=== PATIENT | female | born 1980 | race Caucasian/White ===

== ENCOUNTER 2016-10-15 07:20 | Emergency (ER) | payer BC ==
[2016-10-15 07:30] VITALS: BP 99/64
--- NOTE | 2016-10-15 07:36 | UC ---
Ear Complaint HPI - HPI Summary HPI Summary: The patient comes in today for: 1. Bilateral ears feeling "plugged." Onset: Yesterday. Palliative/provocative: Driving makes it worse. Quality: Pressure, plugged. Region: Left ear is worse than the right. Severity: 0/10--more pressure and feeling like under water. Time: Constant. Associated symptoms: Previous disease: "Ear infection" on the left in July. Discharge: None. * - History of Current Complaint Chief Complaint: UCEar Stated Complaint: EAR COMPLAINT Time Seen by Provider: 10/15/16 07:31 Hx Obtained From: Patient Hx Last Menstrual Period: 10/06/16 ?: No - Allergies/Home Medications Allergies/Adverse Reactions: Allergies Allergy/AdvReac Type Severity Reaction Status Date / Time Sulfa Drugs Allergy Severe Hives Verified 08/09/16 07:34 Home Medications: Home Medications Norethindr/Eth Estradiol(Nf) [Lo Loestrin Fe (NF)] 1 tab PO BEDTIME 10/15/16 [ History Confirmed 10/15/16] PMH/Surg Hx/FS Hx/Imm Hx Previously Healthy: No - Family planning: on BCP, getting gallbladder out next week. Endocrine History Of: Denies: Diabetes, Thyroid Disease, Hyperthyroidism, Hypothyroidism, Dyslipidemia Cardiovascular History Of: Denies: Cardiac Disorders, Hypertension, Pacemaker/ICD, Myocardial Infarction , Congestive Heart Failure, Atrial Fibrillation, Deep Vein Thrombosis, Bleeding Disorders Respiratory History Of: Reports: Asthma - No inhalers used regularly--only prn. Denies: COPD, Bronchitis, Pneumonia, Pulmonary Embolism GI/ History Of: Denies: Gastroesophageal Reflux, Ulcer, Gastrointestinal Bleed, Gall Bladder Disease, Kidney Stones, Diverticulitis, Renal Disease, Urosepsis Neurological History Of: Denies: TIA, CVA, Dementia, Seizures, Migraine Psychological History Of: Denies: Anxiety, Depression, Bipolar Disorder, Schizophrenia, Post Traumatic Stress Disorder Cancer History Of: Denies: Lung Cancer, Colorectal Cancer, Breast Cancer, Prostate Cancer, Cervical Cancer Other History Of: Negative For: HIV, Hepatitis B, Hepatitis C, Anticoagulant Therapy - Surgical History Surgical History: Yes Surgery Procedure, Year, and Place: - Family History Known Family History: Positive: Cardiac Disease, Hypertension - Social History Alcohol Use: Rare Substance Use Type: None Smoking Status (MU): Never Smoked Tobacco Review of Systems Constitutional: Negative Skin: Negative Eyes: Negative ENT: Negative Respiratory: Cough - Dry, "little" cough. Cardiovascular: Negative Gastrointestinal: Negative All Other Systems Reviewed And Are Negative: Yes Physical Exam Triage Information Reviewed: Yes Appearance: Well-Appearing, No Pain Distress, Well-Nourished Vital Signs: Initial Vital Signs Temp 98.3 F 10/15/16 07:23 Pulse 74 10/15/16 07:23 Resp 16 10/15/16 07:23 BP 99/64 10/15/16 07:23 Pulse Ox 100 10/15/16 07:23 Vital Signs Reviewed: Yes Eyes: Positive: Conjunctiva Clear. Negative: Discharge ENT: Positive: Hearing grossly normal, Other: - Ears: Left: Cerumen blocks view of TM. AFter irrigation, TM bennett and transludent; canal free of erythema or edema. Right: TM bennett and translucent, no canal erythema or edema.. Negative: Pharyngeal erythema, Nasal congestion, Nasal drainage, Tonsillar swelling, Tonsillar exudate Dental: Negative: Gross Decay/Caries @, Dental Fracture @ Neck: Positive: Supple, Nontender, No Lymphadenopathy. Negative: Nuchal Rigidity Respiratory: Positive: Lungs clear, No respiratory distress, No accessory muscle use. Negative: Crackles, Wheezing Cardiovascular: Positive: RRR, No Murmur Abdomen Description: Positive: Nontender, No Organomegaly, Soft. Negative: Distended, Guarding Musculoskeletal: Positive: Strength Intact, ROM Intact Neurological: Positive: Alert, Muscle Tone Normal Psychological: Positive: Age Appropriate Behavior, Consolable Skin: Negative: rashes, breakdown Ear Complaint Course/Dx - Differential Dx/Diagnosis Differential Diagnosis/HQI/PQRI: Cellulitis, Cerumen Impaction, Otitis Externa Provider Diagnoses: Eustachian tube dysfunction, bilateral. Discharge - Discharge Plan Condition: Stable Disposition: HOME Patient Education Materials: Eustachian Tube Dysfunction (GEN) Referrals: Maykel Pereira, [Primary Care Provider] - If Needed (If you improve, you don't need any follow up. However, if you don't improve or particularly if you get worse, please be seen again by your primary care provider or one of the ENT specialists. ) Tony Hassan MD [Medical Doctor] -
== END 2016-10-15 08:04 | disposition home or self-care (01) ==
LOC: UCCORT 07:20
DX: H69.93 Unspecified Eustachian tube disorder, bilateral (principal); Z88.2 Allergy status to sulfonamides
CPT/HCPCS: 99212; G0463

== ENCOUNTER 2016-12-13 19:31 | Emergency (ER) | payer BC ==
[2016-12-13 21:26] VITALS: BP 114/68
--- NOTE | 2016-12-13 22:01 | UC ---
Ear Complaint HPI - HPI Summary HPI Summary: The patient comes in today for: 1. Plugged ears, and head pressure: Onset: 2 days ago. Palliative/provocative: Bending over makes it worse. Quality: Plugged sensation of the left ear. Region: Bilateral ears, left is worse than the right. Severity: 4/10 Time: Constant. Associated symptoms: FEvers; None. Discharge: None Previous ear disease: Rupture of the left ear 2-3 years ago. Hearing: decreased. * - History of Current Complaint Chief Complaint: UCEar Stated Complaint: EAR/SINUS COMPLAINT Time Seen by Provider: 12/13/16 21:55 Hx Obtained From: Patient Hx Last Menstrual Period: 12/01/16 ?: No - Allergies/Home Medications Allergies/Adverse Reactions: Allergies Allergy/AdvReac Type Severity Reaction Status Date / Time Sulfa Drugs Allergy Severe Hives Verified 12/13/16 21:20 Home Medications: Home Medications Pseudoephedrine HCl [Sudafed Congestion] 2 tab PO Q4HR PRN 12/13/16 [History Confirmed 12/13/16] PMH/Surg Hx/FS Hx/Imm Hx Previously Healthy: No - Family planning/BCP Endocrine History Of: Denies: Diabetes, Thyroid Disease, Hyperthyroidism, Hypothyroidism, Dyslipidemia Cardiovascular History Of: Denies: Cardiac Disorders, Hypertension, Pacemaker/ICD, Myocardial Infarction , Congestive Heart Failure, Atrial Fibrillation, Deep Vein Thrombosis, Bleeding Disorders Respiratory History Of: Reports: Asthma - No inhalers used regularly--only prn. Denies: COPD, Bronchitis, Pneumonia, Pulmonary Embolism GI/ History Of: Denies: Gastroesophageal Reflux, Ulcer, Gastrointestinal Bleed, Gall Bladder Disease, Kidney Stones, Diverticulitis, Renal Disease, Urosepsis Neurological History Of: Denies: TIA, CVA, Dementia, Seizures, Migraine Psychological History Of: Denies: Anxiety, Depression, Bipolar Disorder, Schizophrenia, Post Traumatic Stress Disorder Cancer History Of: Denies: Lung Cancer, Colorectal Cancer, Breast Cancer, Prostate Cancer, Cervical Cancer Other History Of: Negative For: HIV, Hepatitis B, Hepatitis C, Anticoagulant Therapy - Surgical History Surgical History: Yes Surgery Procedure, Year, and Place: ; Lap Choleycesctomy - Family History Known Family History: Positive: Cardiac Disease, Hypertension, Diabetes - Social History Occupation: Employed Full-time Alcohol Use: Rare Substance Use Type: None Smoking Status (MU): Never Smoked Tobacco - Immunization History Most Recent Influenza Vaccination: not utd Review of Systems Constitutional: Negative Skin: Negative Eyes: Negative ENT: Negative, Other - Head congestion. Respiratory: Cough Cardiovascular: Negative Gastrointestinal: Negative Genitourinary: Negative All Other Systems Reviewed And Are Negative: Yes Physical Exam Triage Information Reviewed: Yes Appearance: Well-Appearing, No Pain Distress, Well-Nourished Vital Signs: Initial Vital Signs Temp 98.0 F 12/13/16 21:21 Pulse 52 12/13/16 21:21 Resp 14 12/13/16 21:21 BP 114/68 12/13/16 21:21 Pulse Ox 99 12/13/16 21:21 Vital Signs Reviewed: Yes Eyes: Positive: Conjunctiva Clear. Negative: Discharge ENT: Positive: Hearing grossly normal. Negative: Pharyngeal erythema, Nasal congestion, Nasal drainage, TM bulging, TM dull, TM red, Tonsillar swelling, Tonsillar exudate Dental: Negative: Gross Decay/Caries @, Dental Fracture @ Neck: Positive: Supple, Nontender, No Lymphadenopathy. Negative: Nuchal Rigidity Respiratory: Positive: Chest non-tender, Lungs clear, No respiratory distress, No accessory muscle use. Negative: Crackles, Wheezing Cardiovascular: Positive: RRR, No Murmur Abdomen Description: Positive: Nontender, No Organomegaly, Soft. Negative: Distended, Guarding Musculoskeletal: Positive: Strength Intact, ROM Intact Neurological: Positive: Alert, Muscle Tone Normal. Negative: Lethargic, Unresponsive Psychological: Positive: Age Appropriate Behavior, Consolable Skin: Negative: rashes, breakdown Ear Complaint Course/Dx - Course Course Of Treatment: Patient was told of the benign findings. He was encouraged to insulflate her ears. - Differential Dx/Diagnosis Provider Diagnoses: Eustachian tube dysfunction. Discharge - Discharge Plan Condition: Stable Disposition: HOME Patient Education Materials: Eustachian Tube Dysfunction (GEN) Referrals: Maykel Pereira DO [Primary Care Provider] - 1 Week (Please see your primary care provider in about a week to see how well you are doing. If you get worse, please be seen sooner.)
== END 2016-12-13 22:16 | disposition home or self-care (01) ==
LOC: UCCORT 19:31
DX: H69.93 Unspecified Eustachian tube disorder, bilateral (principal); Z88.2 Allergy status to sulfonamides; Z90.49 Acquired absence of other specified parts of digestive tract
CPT/HCPCS: 99211; G0463

== ENCOUNTER 2019-01-23 07:36 | Emergency (ER) | payer BC ==
--- OUTSIDE RECORDS SUMMARY | 2019-01-23 07:46 | XMS REPORT | Continuity of Care Document ---
:1980 External Reference #:[id number] Author Name Ramila Hemphill MD Address [address] [place] [id number] Care Team Providers Name Role Phone Ramila Hemphill MD Care Team Information Card Player Unavailable Payers Date Identification Numbers Payment Provider Subscriber Effective: 2018 Policy Number: [id number] [facility] Commercial Asa leary PayID: [id number] [address] [address] [place] [phone] Effective: 2011 Policy Number: [id number] [facility] [employer] Asa Butcher Expires: 2018 PayID: [id number] [address] [address] [place] [phone] Advance Directives Description No Information Available Problems Date Description Provider Status Onset: 08/30/2018 Mild intermittent asthma Ramila Hemphill MD Active Family History Date Family Member(s) Observation Comments Onset: (age 48 Years) Father CAD Father Hypertension Father Diabetes, Adult Mother Arrythmia SVT, had procedure First Daughter No Current Problems First Sister No Current Problems Social History Type Date Description Comments Sex Unknown Marital Status 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 Tyrone Mata ETOH Use Denies alcohol use Tobacco Use Start: Unknown Patient has never smoked Recreational Drug Use Denies Drug Use Smoking Status Reviewed: 12/25/18 Patient has never smoked Allergies, Adverse Reactions, Alerts Date Description Reaction Status Severity Comments 07/28/2016 Sulfa Drugs HIVES Active Medications Medication Date Status Form Strength Qnty SIG Indications Ordering Provider Low-Ogestrel Active Tablets 0.3-30mg-mc 168tabs tk 1 t by Kanchan 000 g mouth Ramila MD every day Amoxicillin/Cl Hx Tablets 875-125mg 20tabs 1 by J01.90 Kanchan avulanate 018 - mouth Ramila MD Potassium twice a 018 day No Active Hx Unknown Medications 016 - 016 Amoxicillin Hx Tablets 875mg 20tabs 1 by H66.92 Digiovanna 016 - mouth , twice a Janet, 016 day for BUTTON SEWER HAND 10 days Advair Diskus Hx Aerosol 100-50mcg/D 60units inhale 1 Unknown 000 - ose dose by mouth 016 twice a day Proair HFA Hx Aerosol 108(90Base) 1units 2 puffs Unknown 000 - mcg/Act po prn 016 Immunizations CPT Code Status Date Vaccine Reaction Lot # [id number] Given 12/25/2018 Pneumococcal 23 Immunization [id number] Adult Or Immunosuppressed Patient Q2039 Given 07/31/2018 Flu Vaccine NOS GIVEN AT PHARMACY 45631 Given 08/06/2014 Tdap (Adacel) Ages 7 And Above GIVEN AT OB Only Vital Signs Date Vital Result Comment 12/25/2018 9:44am Weight 189.00 lb Heart Rate 64 /min BP Systolic 130 mmHg BP Diastolic 80 mmHg Respiratory Rate 16 /min Height 65.75 inches 5'5.75" O2 % BldC Oximetry 100 % ra BMI (Body Mass Index) 30.7 kg/m2 08/30/2018 3:20pm Body Temperature 98.5 F Weight 183.00 lb Heart Rate 64 /min BP Systolic 124 mmHg BP Diastolic 80 mmHg Respiratory Rate 18 /min Height 65.25 inches 5'5.25" 07/28/16 O2 % BldC Oximetry 98 % Ra BMI (Body Mass Index) 30.2 kg/m2 10/07/2016 1:14pm Body Temperature 99.0 F Weight 160.00 lb Heart Rate 72 /min BP Systolic 114 mmHg BP Diastolic 70 mmHg Respiratory Rate 18 /min Height 65.25 inches 5'5.25" 07/28/16 BMI (Body Mass Index) 26.4 kg/m2 07/28/2016 1:04pm Body Temperature 98.7 F Weight 174.00 lb Heart Rate 72 /min BP Systolic 120 mmHg BP Diastolic 74 mmHg Respiratory Rate 17 /min Height 65.25 inches 5'5.25" 07/28/16 BMI (Body Mass Index) 28.7 kg/m2 10/10/2013 2:58pm Body Temperature 97.6 F Weight 183.00 lb Heart Rate 66 /min BP Systolic 110 mmHg BP Diastolic 70 mmHg Respiratory Rate 18 /min 02/02/2011 1:24pm Body Temperature 98.6 F Weight 160.00 lb Heart Rate 80 /min BP Systolic 130 mmHg BP Diastolic 70 mmHg Height 65 inches 5'5" 05/29/2010 10:24am Weight 149.00 lb Heart Rate 78 /min BP Systolic 102 mmHg BP Diastolic 68 mmHg Respiratory Rate 18 /min 09/22/2009 10:21am Weight 146.31 lb Heart Rate 72 /min BP Systolic 120 mmHg RIGHT BP Diastolic 72 mmHg RIGHT Respiratory Rate 16 /min 08/18/2009 10:32am Weight 145.38 lb Heart Rate 76 /min BP Systolic 110 mmHg LEFT BP Diastolic 54 mmHg LEFT Respiratory Rate 15 /min Height 65.25 inches 5'5.25" Results Test Date Facility Test Result H/L Range Note Laboratory test 12/25/2018 [facility] Pap Smear Thin <pending> finding Prep-RL HPV Dna Test -RL <pending> Laboratory test finding 12/25/2018 [facility] TSH <pending> Hepatic Panel (LFT) 10/07/2016 [facility] Total Protein 7.3 g/dL 6.0-8.0 Albumin 4.3 g/dL 3.6-4.9 Total Bilirubin 0.4 mg/dL 0.1-1.3 Direct Bilirubin 0.1 mg/dL 0.0-0.4 Alkaline Phosphatase 38 U/L 24-140 Alt 15 U/L 3-42 Ast 12 U/L 8-42 Laboratory test finding 10/07/2016 [facility] Amylase 37 U/L 29-103 Lipase 16 U/L 11-82 Celiac Disease 10/07/2016 [facility] Celikey (tTG) IgA Negative Negative Profile-[facility] [place] Celikey (tTG) IgG Negative Negative deamidated Gliadin IgA Negative Negative deamidated Gliadin IgG Negative Negative Laboratory test 01/07/2014 N[facility] Import HCG Serum, Positive High finding Qualitative Laboratory test 02/02/2011 [facility] Import Culture Throat See Note 1 finding Laboratory test 09/22/2009 N2N/[facility] Import Esr (Sed 3 SEC 0-25 2 finding Rate/Westergren) Laboratory test 08/25/2009 N2N/CCD Import A/G Ratio 1.1 1.0-2.2 finding Absolute Basophils 0.085 K/ul 0.0-0.3 Absolute Eosinophils 0.124 K/ul 0.0-0.5 Absolute Lymphocytes 3.38 K/ul 0.8-4.8 Absolute Monocytes 0.468 K/ul 0.1-1.0 Absolute Neutrophils 2.60 K/ul 2.05-7.63 Albumin 3.7 g/dL 3.5-5.0 Alkaline Phosphatase 49 U/L 30-126 Alt 20 U/L 9-52 Ast 18 U/L 14-36 BUN 10 mg/dL 7-18 BUN/CR Ratio 11.5 Ratio Low 12-20 Basophil 1.3 % 0-2 Calcium 9.6 mg/dL 8.7-10.5 Carbon Dioxide 25 mmol/L 22-30 Chloride 108 mmol/L High 98-107 Creatinine, Serum 0.9 mg/dL 0.7-1.2 Eosinophil 1.9 % 0-4 Globulin 3.3 g/dL 2.7-4.3 Glucose 76 mg/dL 65-105 Hematocrit 41.4 % 37.0-51.0 Hemoglobin 13.7 GM/dl 12.0-16.0 Lymphocytes 50.8 % High 20-44 MCH 29.2 pg 26.0-32.0 MCHC 33.1 g/dL 31.0-36.0 MCV 88 FL 80-97 Monocytes 7.0 % 2-10.0 Neutrophils 39.1 % Low 50-70 Platelet Count 235 K/ul 140-440 Potassium 4.1 mmol/L 3.6-5.0 RBC 4.69 M/ul 4.2-6.3 RDW 12.6 % 11.5-14.5 Sodium 142 mmol/L 137-145 TSH 1.561 uIU/ml 0.50-6.00 Total Bilirubin 0.4 mg/dL 0.2-1.3 Total Protein 7.0 g/dL 6.3-8.2 WBC 6.7 K/ul 4.1-10.9 Lipid Panel 08/25/2009 N2N/[facility] Import Chol/HDL Ratio 3.5 Cholesterol 175 mg/dL 50-199 HDL Cholesterol 49 mg/dL 29-86 LDL 107 mg/dL 20-129 3 Triglycerides 93 mg/dL 30-249 VLDL Cholesterol 19 mg/dL 1 Organism 1 ! BETA STREPTOCOCCUS GROUP A QUANTITY ! MANY RECOMMENDED THERAPY : ! PENICILLIN OR AMPICILLIN. ALTERNATIVE THERAPY: ! ERYTHROMYCIN MAY BE USED IN PENICILLIN ALLERGIC ! INDIVIDUALS 2 FASTING 3 Normal Range: Male: <4.98 Female: <4.45 Procedures Date Code Description Status 08/30/2018 89657 Measure Blood Oxygen Level Single Determination Completed 10/12/2016 74821 Echography Abdominal Limited Completed 09/23/2009 02322 Visual Screening Test Completed 09/23/2009 31901 Screening Hearing Test Completed 09/22/2009 19673 Visual Screening Test Completed 09/22/2009 86318 Screening Hearing Test Completed Encounters Type Date Location Provider Dx Diagnosis Office Visit 08/30/2018 [facility] Ramila Hemphill, J01.90 Acute sinusitis, 3:15p unspecified J45.20 Mild intermittent asthma, uncomplicated Z68.30 Body mass index (BMI) 30.0-30.9, adult Office Visit 10/07/2016 1:15p [facility] Maykel Pereira DO R10.10 Upper abdominal pain, unspecified Office Visit 07/28/2016 1:00p [facility] Janet Skelton H66.92 Otitis media, BUTTON SEWER HAND unspecified, LEFT ear Plan of Treatment Future Appointment(s):12/31/2019 11:00 am - Ramila Hemphill MD at [facility]2018 - Ramila Hemphill MDZ01.411 Encounter for gynecological examination ( general) (routine)Comments:Annual agricultural produce washer exam, Annual exam/physical is still recommended Monitor menses flow, if occur < q 21 days or last > 7 days or has breakthrough bleeding, these changes could be signs of endometrial problems such as polyps, cancer, or other problems. Imms reviewedtdap pneumovax. givenannual flu vax recommended doneBreast cancer screening discussedROS normal , no risk for colon cancer identified. Healthy Lifestyle Encouraged: Encouraged healthy diet with meats simply prepared, fresh fruits and veg when able also simply prepared, whole grains, 3 dairies per day non fat. Recommend all patients consume a source of omega 3 fatty acids daily, such as almonds/ walnuts/ground flax seed/olive oil/fish like salmon,tuna. Women at risk for ( meaning, anyone sexually active regardless of contraception) should take 400mcg folic acid daily, usually found in a multivit, to reduce the risks for defects. Encouraged daily exercise 30 - 60 min daily/150min per week. Encouraged at least 2-3 qrts total fluid per day with more for sweaty exercise. Target 7-8 hours of sleep at night. Work on your "happy factors" to decrease stress and enjoy life. Limit your alcohol to under 1 per day, no more than 3 in any one day, no more than 7 per week.Avoid tobacco use. An approach to healthy lifestyle will help reduce your risks for acute and chronic illness and you may enjoy life better! Contraception, pt comfortable with current contraception, combination hormone control pill. We discussed increased risks as she ages, so reminded options of iud, nexplanon, depo, as less risky options. Reminded risks for heart attack, stroke, blood clots, etc. Seek care for concerns.Z87.410 Personal history of cervical dysplasiaFollow up:labs today next visit 1 year for 30min annual agricultural produce washer examE66.9 Obesity, unspecifiedComments: obesitylong term risks for hypertension, diabetes, sleep apnea, arthritis, early cardiovascular disease discussed. discussed new dietary trend to limit grains(including white potatoes and corn)discussed nutrition per calorie ratio, grains are high energyconsider cutting out grains, eating only at breakfast if you do.this will induce calorie loss and hopefully lead to weight loss. recommend eating breakfast dailyrecommend veg/fruits--5--- 1/2 cup/one piece servings per day, lettuce is 1 clean meats 3oz x 2- per daydairy --2- 3nonfatgrains 2- all whole 1/2 to 1 oz nuts a day, 1 tbsp olive/other healthy oil work [place], [place] [address] steps per day seek care if not improving as expected target 90 oz per day total disiqzN73.20 Mild intermittent asthma, uncomplicatedComments:Asthma appears controlled. call for episodes of wheezing/ cough/asthma symptoms more than 2-3 times per weke. recommend annual flu vaccine, should receive the injection.Advised pt of new recommendations for asthmatics to have pneumovax.Z23 Encounter for jmvolgqhewdoX53.30 Body mass index (BMI) 30.0-30.9, adultComments:recommend reduced calorie intake, healthy eating and regular exercise for weight reduction
[2019-01-23 07:49] VITALS: BP 132/83
--- NOTE | 2019-01-23 07:59 | UC ---
Skin Complaint HPI - HPI Summary HPI Summary: skin lesion left upper back x 1 day concern about Tick bite no fever, no chills, no joint pain - History of Current Complaint Chief Complaint: UCSkin Time Seen by Provider: 01/23/19 07:48 Stated Complaint: SKIN CONCERN ON LT SIDE Hx Obtained From: Patient Hx Last Menstrual Period: 12/23/18 ?: No Onset/Duration: Gradual Onset, Lasting Days - 1, Still Present Timing: Constant Onset Severity: Mild Current Severity: Mild Pain Intensity: 0 Location: Other - left upper back Character: Redness, Raised Aggravating Factor(s): Nothing Alleviating Factor(s): Nothing Associated Signs & Symptoms: Negative: Nausea, Vomiting, Weakness, Fever, Chills , Tenderness Related History: Insect Bite/Sting - ? Tick bite - Allergy/Home Medications Allergies/Adverse Reactions: Allergies Allergy/AdvReac Type Severity Reaction Status Date / Time Sulfa (Sulfonamide Allergy Hives Verified 01/23/19 07:48 Antibiotics) PMH/Surg Hx/FS Hx/Imm Hx Respiratory History: Asthma Other History Of: Negative For: HIV, Hepatitis B, Hepatitis C, Anticoagulant Therapy - Surgical History Surgical History: Yes Surgery Procedure, Year, and Place: ; Lap Choleycesctomy - Family History Known Family History: Positive: Cardiac Disease, Hypertension, Diabetes - Social History Alcohol Use: Rare Substance Use Type: None Smoking Status (MU): Never Smoked Tobacco - Immunization History Most Recent Influenza Vaccination: not utd Review of Systems All Other Systems Reviewed And Are Negative: Yes Constitutional: Positive: Negative Skin: Positive: Rash Eyes: Positive: Negative ENT: Positive: Negative Respiratory: Positive: Negative Cardiovascular: Positive: Negative Is Patient Immunocompromised?: No Physical Exam Triage Information Reviewed: Yes Appearance: Well-Appearing, No Pain Distress, Well-Nourished Vital Signs: Initial Vital Signs Temp 98.3 F 01/23/19 07:44 Pulse 71 01/23/19 07:44 Resp 18 01/23/19 07:44 BP 132/83 01/23/19 07:44 Pulse Ox 100 01/23/19 07:44 Vital Signs Reviewed: Yes Eye Exam: Normal Eyes: Positive: Conjunctiva Clear ENT: Positive: Normal ENT inspection, Hearing grossly normal, Pharynx normal Neck: Positive: Supple Respiratory: Positive: Chest non-tender, Lungs clear, Normal breath sounds Cardiovascular: Positive: RRR, No Murmur, Pulses Normal, Brisk Capillary Refill Skin: Positive: Other - small abrasion left upper back , ? tick bite site Course/Dx - Diagnoses Provider Diagnosis: Insect bite of back Discharge - Sign-Out/Discharge Documenting (check all that apply): Patient Departure All imaging exams completed and their final reports reviewed: No Studies - Discharge Plan Condition: Stable Disposition: HOME Prescriptions: DOXYcycline CAP(*) [DOXYcycline 100MG CAP(*)] 200 mg PO DAILY #2 cap Patient Education Materials: Tick Bite (ED) Referrals: Ramila Hemphill MD [Primary Care Provider] - If Needed Additional Instructions: ? Tick bite, no Tick was seen Doxy 200 mg x 1 follow up if having, fever, chills, body / joint pain , rash - Billing Disposition and Condition Condition: STABLE Disposition: Home
== END 2019-01-23 08:01 | disposition home or self-care (01) ==
LOC: UCCORT 07:36
DX: S20.462A Insect bite (nonvenomous) of left back wall of thorax, initial encounter (principal); S20.412A Abrasion of left back wall of thorax, initial encounter; W57.XXXA Bitten or stung by nonvenomous insect and other nonvenomous arthropods, initial encounter; Y92.9 Unspecified place or not applicable; J45.909 Unspecified asthma, uncomplicated; Z88.2 Allergy status to sulfonamides
CPT/HCPCS: 99212; G0463

== ENCOUNTER 2019-08-28 19:33 | Emergency (ER) | payer BC ==
[2019-08-28 20:15] VITALS: BP 128/76
--- NOTE | 2019-08-28 20:30 | UC ---
Throat Pain/Nasal Wilian HPI - HPI Summary HPI Summary: Patient has had a sore throat over the past day. She has 2 children who have strep. She denies any fever or chills or any other symptoms. She wanted to have a strep test done because her father's having surgery later in the week. - History of Current Complaint Chief Complaint: UCGeneralIllness Stated Complaint: SORE THROAT Time Seen by Provider: 08/28/19 19:59 Hx Obtained From: Patient Hx Last Menstrual Period: 12/23/18 ?: No Onset/Duration: Gradual Onset Severity: Mild Pain Intensity: 2 Cough: None Associated Signs & Symptoms: Positive: Negative - Allergies/Home Medications Allergies/Adverse Reactions: Allergies Allergy/AdvReac Type Severity Reaction Status Date / Time Sulfa (Sulfonamide Allergy Hives Verified 08/28/19 20:15 Antibiotics) PMH/Surg Hx/FS Hx/Imm Hx Previously Healthy: Yes Other History Of: Negative For: HIV, Hepatitis B, Hepatitis C, Anticoagulant Therapy - Surgical History Surgical History: Yes Surgery Procedure, Year, and Place: ; Lap Choleycesctomy - Family History Known Family History: Positive: Cardiac Disease, Hypertension, Diabetes - Social History Lives: With Family Alcohol Use: Rare Substance Use Type: None Smoking Status (MU): Never Smoked Tobacco - Immunization History Most Recent Influenza Vaccination: not utd Review of Systems All Other Systems Reviewed And Are Negative: Yes ENT: Positive: Sore Throat Is Patient Immunocompromised?: No Physical Exam Triage Information Reviewed: Yes Appearance: Well-Appearing, No Pain Distress, Well-Nourished Vital Signs: Initial Vital Signs Temp 98.9 F 08/28/19 20:12 Pulse 60 08/28/19 20:12 Resp 18 08/28/19 20:12 BP 128/76 08/28/19 20:12 Pulse Ox 100 08/28/19 20:12 Vital Signs Reviewed: Yes Eyes: Positive: Conjunctiva Clear ENT: Positive: Hearing grossly normal, Pharynx normal, TMs normal, Uvula midline Neck: Positive: Supple, Nontender, No Lymphadenopathy Respiratory: Positive: Lungs clear, Normal breath sounds, No respiratory distress, No accessory muscle use Cardiovascular: Positive: RRR, No Murmur, Pulses Normal, Brisk Capillary Refill Musculoskeletal Exam: Normal Neurological Exam: Normal Psychological Exam: Normal Skin Exam: Normal Throat Pain/Nasal Course/Dx - Course Course Of Treatment: Rapid strep test negative. Patient is comfortable here. - Differential Dx/Diagnosis Provider Diagnosis: Pharyngitis Discharge ED - Sign-Out/Discharge Documenting (check all that apply): Patient Departure All imaging exams completed and their final reports reviewed: No Studies - Discharge Plan Condition: Good Disposition: HOME Patient Education Materials: Pharyngitis (ED) Referrals: Ramila Hemphill MD [Primary Care Provider] - Additional Instructions: Increase fluids, warm saltwater gargles, Tylenol every 4 hours for pain or fever and may alternate with Motrin every 8 hours. Definite follow-up with your primary care provider if no improvement in 3 or 4 days. - Billing Disposition and Condition Condition: GOOD Disposition: Home
== END 2019-08-28 20:36 | disposition home or self-care (01) ==
LOC: UCCORT 19:33
DX: J02.9 Acute pharyngitis, unspecified (principal); Z88.2 Allergy status to sulfonamides
CPT/HCPCS: 87651; 99211; G0463

== ENCOUNTER 2019-10-04 12:21 | Emergency (ER) | payer BC ==
[2019-10-04 12:57] VITALS: BP 128/68
--- NOTE | 2019-10-04 13:18 | UC ---
Throat Pain/Nasal Wilian HPI - HPI Summary HPI Summary: Patient presents to urgent care with 24 hours of sore throat painful swallowing and low-grade fever. Patient been taking Motrin and Tylenol [id number] with improvement of symptoms. Last dose was noon. Patient denies drooling. No ear congestion. Mild mild sinus congestion. No rash. No cough shortness of breath abdominal pain. No nausea vomiting. Patient states she isn't . 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 Patient's medications as 100 in the EMR by triage nurse were reviewed. - History of Current Complaint Chief Complaint: UCRespiratory Stated Complaint: BOYCE,NECK PAIN,ST Time Seen by Provider: 10/04/19 13:08 Hx Obtained From: Patient Hx Last Menstrual Period: 10/03/19 ?: No Severity: Mild Pain Intensity: 5 - Allergies/Home Medications Allergies/Adverse Reactions: Allergies Allergy/AdvReac Type Severity Reaction Status Date / Time Sulfa (Sulfonamide Allergy Hives Verified 10/04/19 12:51 Antibiotics) Home Medications: Home Medications Ibuprofen TAB* [Advil TAB*] 800 mg PO Q6H PRN 10/04/19 [History Confirmed ] Naproxen Sodium [Aleve] 440 mg PO ONCE PRN 10/04/19 [History Confirmed 10/04/19] PMH/Surg Hx/FS Hx/Imm Hx Previously Healthy: Yes Other History Of: Negative For: HIV, Hepatitis B, Hepatitis C, Anticoagulant Therapy - Surgical History Surgical History: Yes Surgery Procedure, Year, and Place: ; Lap Choleycesctomy - Family History Known Family History: Positive: Cardiac Disease, Hypertension, Diabetes, Non- Contributory - Social History Occupation: Employed Full-time Lives: With Family Alcohol Use: Rare Substance Use Type: None Smoking Status (MU): Never Smoked Tobacco - Immunization History Most Recent Influenza Vaccination: not utd Review of Systems All Other Systems Reviewed And Are Negative: Yes Constitutional: Positive: Fever ENT: Positive: Sore Throat, Sinus Congestion Physical Exam - Summary Physical Exam Summary: Vital Signs Reviewed: Yes A+Ox3, no distress Eyes: Conjunctiva Clear, EV. EOM intact and full ENT: Hearing grossly normal TM x 2 clear, turbinates mildly inflammed and boggy , mmoist, uvula midline, + exudate right tonsil, + erythema Neck: Positive: Supple, + submandibular LA L>R Respiratory: Positive: No respiratory distress, No accessory muscle use + CTA throughout no w/r Cardiovascular: RRR nl s1, s2 no m/r CBT <2 sec abd soft + BS nt/nd no guarding, no distension Musculoskeletal Exam: ARIZMENDI x 4 without difficulty Strength Intact, ROM Intact Neurological: Positive: Alert, + sensation throughout Psychological: Positive: Normal Response To examiner Skin: Positive: no rash, no ecchymosis Triage Information Reviewed: Yes Vital Signs: Initial Vital Signs Temp 100.4 F 10/04/19 12:52 Pulse 91 10/04/19 12:52 Resp 15 10/04/19 12:52 BP 128/68 10/04/19 12:52 Pulse Ox 99 10/04/19 12:52 Throat Pain/Nasal Course/Dx - Course Course Of Treatment: Patient presents to urgent care with sore throat since yesterday. Patient's been taking Motrin and Tylenol for pain as well as low-grade temperature. Patient's been exposed to strep throat. On exam patient does have a low-grade temperature with last Motrin 2 hours prior to arrival. Patient has exudate and erythema. Patient's rapid strep is positive. We'll start Omnicef. Motrin Tylenol. Work note. Hydrate. Return precautions. Secretion precautions. Patient comfortable and agreed with plan. - Differential Dx/Diagnosis Provider Diagnosis: Strep pharyngitis Discharge ED - Sign-Out/Discharge Documenting (check all that apply): Patient Departure All imaging exams completed and their final reports reviewed: No Studies - Discharge Plan Condition: Stable Disposition: HOME Prescriptions: Cefdinir [Cefdinir 300 MG CAP] 300 mg PO BID #14 capsule Patient Education Materials: Strep Throat (ED) Forms: *Gen. Provider Communication Referrals: Ramila Hemphill MD [Primary Care Provider] - Additional Instructions: - Take antibiotics as prescribed until gone -Okay to alternate ibuprofen (Advil, Motrin) and Tylenol every 3 hours for pain. Take with food. Do NOT take for more than 4-5 days - Okay to gargle and spit warm salt water every 4 hours as needed for pain - Stay well hydrated - frequent sips of cold fluids will be soothing to your throat (popsicles, jello, ice cream, ice water). Avoid excess caffeine until your symptoms have resolved. -Throat infections are spread by oral secretions - do not share eating or drinking utensils until you symptoms are resolved. Clean items that may get your secretions such as cell phones, ipads, computer mouse, television remotes. Once you have been on antibiotics for 2 days, change your toothbrush and your pillowcase. - humidify the air in the room where you sleep - boil water, run a hot steam shower, vaporizer, cups of water by heat register - Okay to take over the counter cough and decongestant medication - Contact your doctor to arrange a follow-up appointment as needed - Billing Disposition and Condition Condition: STABLE Disposition: Home
== END 2019-10-04 13:22 | disposition home or self-care (01) ==
LOC: UCCORT 12:21
DX: J02.0 Streptococcal pharyngitis (principal); Z88.2 Allergy status to sulfonamides
CPT/HCPCS: 87651; 99212; G0463